=== PATIENT | male | born 1970 | race Caucasian/White ===

== ENCOUNTER 2016-12-16 09:11 | Emergency (ER) | payer OTHER ==
[2016-12-16 09:37] VITALS: BP 106/83; PULSE 71; RESP 16; TEMP 97.4; O2SAT 98
== END 2016-12-16 11:18 | disposition home or self-care (01) ==
LOC: ED 09:11
DX: S20.211A Contusion of right front wall of thorax, initial encounter (principal); W10.1XXA Fall (on)(from) sidewalk curb, initial encounter
CPT/HCPCS: 71101; 99282; 99283

== ENCOUNTER 2017-02-13 17:47 | Emergency (ER) | payer OTHER ==
[2017-02-13] MEDS ORDERED: KETOROLAC TROMETHAMINE 30 MG/ML SOL IM ONE (17:49)
[2017-02-13] MEDS ORDERED: KETOROLAC TROMETHAMINE 30 MG/ML SOL ONE (17:55)
[2017-02-13 18:06] VITALS: RESP 12; TEMP 97.2
[2017-02-13 18:13] VITALS: BP 136/81; PULSE 60; O2SAT 98
== END 2017-02-13 19:08 | disposition home or self-care (01) | DRG 563 ==
LOC: ED 17:47
DX: S83.91XA Sprain of unspecified site of right knee, initial encounter (principal); W19.XXXA Unspecified fall, initial encounter
CPT/HCPCS: 73562; 99282; J1885

== ENCOUNTER 2017-02-19 22:19 | Emergency (ER) | payer OTHER ==
[2017-02-19 22:35] VITALS: TEMP 96.8
[2017-02-19] MEDS ORDERED: TRAMADOL HYDROCHLORIDE 50 MG TAB PO ONE (22:50)
[2017-02-19] MEDS ORDERED: TRAMADOL HYDROCHLORIDE 50 MG TAB ONE (22:50)
[2017-02-19 23:42] VITALS: BP 118/78; PULSE 78; RESP 16; O2SAT 96
== END 2017-02-19 23:15 | disposition home or self-care (01) | DRG 563 ==
LOC: ED 22:19
DX: S29.012A Strain of muscle and tendon of back wall of thorax, initial encounter (principal); M25.561 Pain in right knee; W19.XXXA Unspecified fall, initial encounter
CPT/HCPCS: 99282; 99283

== ENCOUNTER 2017-04-11 01:07 | Emergency (ER) | payer OTHER ==
[2017-04-11 01:08] VITALS: O2SAT 96
[2017-04-11 01:23] VITALS: BP 112/77; PULSE 78; RESP 16; TEMP 97.6
[2017-04-11] MEDS ORDERED: LIDOCAINE HCL 2% MPF SOL SC ONE (01:28)
[2017-04-11] MEDS ORDERED: LIDOCAINE HCL 2% MPF SOL ONE (01:29)
[2017-04-11] MEDS ORDERED: BACITRACIN 500 U/GM OIN TOP ONE ×2 (01:33→01:34)
[2017-04-11] MEDS ORDERED: TDAP VACCINE 0.5 ML SUS IM ONE ×2 (01:33→01:35)
== END 2017-04-11 01:48 | disposition home or self-care (01) ==
LOC: ED 01:07
DX: S91.341A Puncture wound with foreign body, right foot, initial encounter (principal)
CPT/HCPCS: 90471; 90715; 99282

== ENCOUNTER 2017-05-12 16:39 | Emergency (ER) | payer OTHER ==
[2017-05-12] MEDS ORDERED: HYDROMORPHONE HCL 2 MG/ML SOL IV ONE (17:00)
[2017-05-12] MEDS ORDERED: ONDANSETRON HCL 4 MG/2 ML SOL IV ONE (17:00)
[2017-05-12] MEDS ORDERED: ONDANSETRON HCL 4 MG/2 ML SOL ONE (17:02)
[2017-05-12] MEDS ORDERED: HYDROMORPHONE HCL 2 MG/ML SOL ONE (17:02)
[2017-05-12 17:24] LABS: BASOPHILS % (AUTO) 1 % (0-3); EOSINOPHILS % (AUTO) 2 % (0-9); HEMATOCRIT 43 % (39-53); MEAN CORPUSCULAR HGB CONC 35.1 gm/dl (32.0-36.0); MEAN CORPUSCULAR VOLUME 85 fL (80-100); MONOCYTES % (AUTO) 6.1 % (0-12); NEUTROPHILS % (AUTO) 76.9 % (37-80)
[2017-05-12 17:28] VITALS: RESP 30
[2017-05-12 17:39] LABS: ALBUMIN 3.6 gm/dl (3.4-5.0); CALCIUM 8.8 mg/dl (8.5-10.1); POTASSIUM 3.7 mMol/L (3.5-5.1)
[2017-05-12] MEDS ORDERED: IBUPROFEN 600 MG TAB PO ONE (18:56)
[2017-05-12] MEDS ORDERED: IBUPROFEN 600 MG TAB ONE (19:07)
[2017-05-12 19:10] VITALS: PULSE 60
[2017-05-12 19:33] LABS: BILIRUBIN,URINE NEGATIVE (NEGATIVE); COLOR,URINE Yellow; GLUCOSE, URINE (UA) NEGATIVE (NEGATIVE); KETONES,URINE NEGATIVE (NEGATIVE); LEUKOCYTE ESTERASE ,URINE NEGATIVE (NEGATIVE); NITRATE,URINE NEGATIVE (NEGATIVE); OCCULT BLOOD,URINE 3+ (NEG-TRACE); PH,URINE 6.5; UROBILINOGEN,URINE 0.2 (0.2-1.0 EU)
[2017-05-12 19:48] LABS: APPEARANCE,URINE SLIGHTLY CLOUDY
[2017-05-12 19:49] LABS: RBC,URINE 30-45 (0-3AV/HPF); WBC,URINE 0-2 (0-5AV/HPF)
[2017-05-12] MEDS ORDERED: TAMSULOSIN HYDROCHLORIDE 0.4 MG CAP PO ONE (20:41)
[2017-05-12] MEDS ORDERED: TAMSULOSIN HYDROCHLORIDE 0.4 MG CAP ONE (20:49)
[2017-05-12 21:04] VITALS: BP 122/76; O2SAT 95
[2017-05-12 21:06] VITALS: TEMP 97.2
== END 2017-05-12 21:00 | disposition home or self-care (01) ==
LOC: ED 16:39
DX: N13.2 Hydronephrosis with renal and ureteral calculous obstruction (principal)
CPT/HCPCS: 99285 ×3; 74176; 80053; 81001; 85025; J1170; J2405; 36415; 96374; 96375; 99284

== ENCOUNTER 2017-05-15 16:35 | Emergency (ER) | payer OTHER ==
[2017-05-15 17:11] VITALS: BP 123/81; PULSE 86; RESP 16; TEMP 97; O2SAT 92
[2017-05-15] MEDS ORDERED: KETOROLAC TROMETHAMINE 30 MG/ML SOL IM ONE (17:24)
[2017-05-15] MEDS ORDERED: KETOROLAC TROMETHAMINE 30 MG/ML SOL ONE (17:30)
[2017-05-15 17:40] LABS: CALCIUM 8.8 mg/dl (8.5-10.1); POTASSIUM 3.3 mMol/L (3.5-5.1)
[2017-05-15] MEDS ORDERED: POTASSIUM CHLORIDE 10 MEQ TER PO ONE (18:14)
[2017-05-15] MEDS ORDERED: SODIUM CHLORIDE 0.9% 1000 ML SOL IV SCH (18:15)
[2017-05-15] MEDS ORDERED: POTASSIUM CHLORIDE 10 MEQ TER ONE (18:21)
== END 2017-05-15 19:24 | disposition home or self-care (01) ==
LOC: ED 16:35
DX: N20.0 Calculus of kidney (principal); N17.9 Acute kidney failure, unspecified; R79.89 Other specified abnormal findings of blood chemistry
CPT/HCPCS: 99284 ×2; 80048; 99283; J1885; 36415

== ENCOUNTER 2017-11-13 22:24 | Emergency (ER) | payer OTHER ==
[2017-11-13 22:59] VITALS: RESP 16; TEMP 97.2
[2017-11-13] MEDS ORDERED: ACETAMINOPHEN 325 MG PO ONE (23:12)
[2017-11-13] MEDS ORDERED: ACETAMINOPHEN 325 MG ONE (23:15)
[2017-11-13 23:38] VITALS: BP 118/78; PULSE 72; O2SAT 95
== END 2017-11-13 23:57 | disposition home or self-care (01) | DRG 552 ==
LOC: ED 22:24
DX: M54.9 Dorsalgia, unspecified (principal); M17.0 Bilateral primary osteoarthritis of knee; W10.2XXA Fall (on)(from) incline, initial encounter
CPT/HCPCS: 72120; 72220; 99283

== ENCOUNTER 2018-01-07 16:57 | Emergency (ER) | payer OTHER ==
[2018-01-07] MEDS ORDERED: TDAP VACCINE 0.5 ML SUS IM ONE (17:02)
[2018-01-07] MEDS ORDERED: BACITRACIN 500 U/GM OIN TOP ONE ×2 (17:07→17:43)
[2018-01-07] MEDS ORDERED: ACETAMINOPHEN 325 MG PO ONE (17:07)
[2018-01-07 17:12] VITALS: TEMP 98
[2018-01-07] MEDS ORDERED: ACETAMINOPHEN 325 MG ONE (17:43)
[2018-01-07 17:47] VITALS: BP 120/76; PULSE 67; RESP 18; O2SAT 92
== END 2018-01-07 18:21 | disposition home or self-care (01) ==
LOC: ED 16:57
DX: S06.899A Other specified intracranial injury with loss of consciousness of unspecified duration, initial encounter (principal); W19.XXXA Unspecified fall, initial encounter; S00.01XA Abrasion of scalp, initial encounter
CPT/HCPCS: 70450; 72125; 99283; A9270-GY

== ENCOUNTER 2018-05-16 12:36 | Emergency (ER) | payer OTHER ==
[2018-05-16 12:46] VITALS: TEMP 96.7
[2018-05-16] MEDS ORDERED: NITROGLYCERIN 0.4 MG TAB SL PRN (12:49)
[2018-05-16] MEDS ORDERED: ASPIRIN 81 MG CHEWABLE CTB PO STA (12:49)
[2018-05-16] MEDS ORDERED: SODIUM CHLORIDE 0.9% FLUSH 10 ML SOL IV PRN (12:49)
[2018-05-16 12:56] LABS: HEMATOCRIT 45 % (39-53); HEMOGLOBIN 16.1 gm/dl (13.5-17.7); MEAN CORPUSCULAR HEMOGLOBIN 30.8 pg (27.0-32.0); MEAN CORPUSCULAR HGB CONC 35.5 gm/dl (32.0-36.0); MEAN CORPUSCULAR VOLUME 87 fL (80-100)
[2018-05-16 13:05] LABS: INR 0.99 (0.86-1.12)
[2018-05-16 13:07] LABS: BLOOD UREA NITROGEN 11 mg/dl (7-18); CARBON DIOXIDE 30.5 mEq/L (21-32); CHLORIDE 108 mMol/L (98-107); CREATINE KINASE 213 U/L (39-308); CREATININE 1.04 mg/dl (0.80-1.30); GLOM FILT RATE 77 mL/min (>60); GLUCOSE 92 mg/dl (74-106); POTASSIUM 3.1 mMol/L (3.5-5.1); SODIUM 146 mMol/L (136-145); TROP I < 0.017 ng/ml (0.000-0.056)
[2018-05-16 13:08] LABS: BAND NEUTROPHILS % (MANUAL) 1 %; LYMPHOCYTES % (MANUAL) 24 % (10-50); NEUTROPHILS % (MANUAL) 66 % (37-80)
[2018-05-16 13:09] LABS: BASOPHILS % (MANUAL) 0 % (0-3); EOSINOPHILS % (MANUAL) 4 % (0-9); MONOCYTES % (MANUAL) 5 % (0-12)
[2018-05-16] MEDS ORDERED: POTASSIUM CHLORIDE 10 MEQ TER PO ONE (14:04)
[2018-05-16] MEDS ORDERED: POTASSIUM CHLORIDE 10 MEQ TER ONE (14:48)
[2018-05-16 14:55] VITALS: RESP 18
[2018-05-16] MEDS ORDERED: PANTOPRAZOLE SODIUM 40 MG ECT PO ONE ×2 (15:29→15:30)
[2018-05-16 15:59] VITALS: BP 135/89; PULSE 79; O2SAT 91
== END 2018-05-16 15:45 | disposition home or self-care (01) ==
LOC: ED 12:36
DX: R12 Heartburn (principal)
CPT/HCPCS: 36415; 71045; 80048; 82550; 84484; 85007; 85027; 85610; 85730; 93005; 99283; 99284; A9270-GY

== ENCOUNTER 2018-09-01 21:10 | Emergency (ER) | payer OTHER ==
[2018-09-01] MEDS ORDERED: SODIUM CHLORIDE 0.9% FLUSH 10 ML SOL IV PRN (21:26)
[2018-09-01] MEDS ORDERED: NITROGLYCERIN 0.4 MG TAB SL PRN (21:26)
[2018-09-01 21:29] LABS: BASOPHILS % (AUTO) 1 % (0-3); EOSINOPHILS % (AUTO) 3 % (0-9); HEMATOCRIT 44 % (39-53); HEMOGLOBIN 14.6 gm/dl (13.5-17.7); LYMPHOCYTES % (AUTO) 19.2 % (10-50); MEAN CORPUSCULAR HEMOGLOBIN 29.9 pg (27.0-32.0); MEAN CORPUSCULAR HGB CONC 33.5 gm/dl (32.0-36.0); MEAN CORPUSCULAR VOLUME 89 fL (80-100); MONOCYTES % (AUTO) 5.5 % (0-12); NEUTROPHILS % (AUTO) 71.6 % (37-80)
[2018-09-01] MEDS ORDERED: PANTOPRAZOLE SODIUM 40 MG/10 ML PDS IV ONE (21:36)
[2018-09-01 21:37] VITALS: TEMP 97.2
[2018-09-01] MEDS ORDERED: LIDOCAINE HCL 2% (VISCOUS) 20 ML SOL MT ONE (21:40)
[2018-09-01] MEDS ORDERED: ALUMINUM/MAGNESIUM 30 ML SUS PO ONE (21:40)
[2018-09-01] MEDS ORDERED: ALUMINUM/MAGNESIUM 30 ML SUS ONE (21:41)
[2018-09-01] MEDS ORDERED: LIDOCAINE HCL 2% (VISCOUS) 20 ML SOL ONE (21:42)
[2018-09-01] MEDS ORDERED: PANTOPRAZOLE SODIUM 40 MG/10 ML PDS ONE (21:42)
[2018-09-01 21:43] LABS: BLOOD UREA NITROGEN 14 mg/dl (7-18); CALCIUM 8.4 mg/dl (8.5-10.1); CARBON DIOXIDE 28.2 mEq/L (21-32); CHLORIDE 108 mMol/L (98-107); CREATINE KINASE 151 U/L (39-308); CREATININE 1.05 mg/dl (0.80-1.30); GLUCOSE 122 mg/dl (74-106); POTASSIUM 3.6 mMol/L (3.5-5.1); SODIUM 146 mMol/L (136-145); TROP I < 0.017 ng/ml (0.000-0.056)
[2018-09-01 21:56] VITALS: O2SAT 97
[2018-09-01 23:30] VITALS: BP 107/76; PULSE 86; RESP 17
== END 2018-09-01 23:40 | disposition home or self-care (01) ==
LOC: ED 21:10
DX: R07.89 Other chest pain (principal); K21.9 Gastro-esophageal reflux disease without esophagitis
CPT/HCPCS: 74022; 80048; 82550; 84484; 85025; 93005; 96374; 99284; 99285; A9270-GY

== ENCOUNTER 2019-02-14 19:36 | Emergency (ER) | payer BC, OTHER ==
[2019-02-14 19:53] VITALS: TEMP 97.6
[2019-02-14 21:09] VITALS: BP 121/81; PULSE 64; RESP 18; O2SAT 97
== END 2019-02-14 21:09 | disposition home or self-care (01) ==
LOC: ED 19:36 → SUPCPDRO 19:36 → ED 21:09
DX: S20.219A Contusion of unspecified front wall of thorax, initial encounter (principal)
CPT/HCPCS: 71101; 99282; 99283